=== PATIENT | female | born 1980 | race Caucasian/White ===

== ENCOUNTER 2017-11-03 22:19 | Emergency (ER) | payer SELFPAY ==
[2017-11-04 00:07] LABS: ADD MAN DIFF? NO
[2017-11-04 00:10] LABS: BASO % 1 % (0-3); EOS # 0.1 x10^3/uL (0.0-0.7); EOS % 2 % (0-3); HEMOGLOBIN 12.2 g/dL (12.0-15.5); LYMPH # 2.1 x10^3/uL (1.0-4.8); LYMPH % 34 % (24-48); MEAN CORPUSCULAR HEMOGLOBIN 33 pg (25-35); MEAN CORPUSCULAR HGB CONC 35 g/dL (31-37); MEAN CORPUSCULAR VOLUME 95 fL (79-100); MONO # 0.6 x10^3/uL (0.0-1.1); MONO % 9 % (0-9); NEUT # 3.5 x10^3uL (1.8-7.7); NEUT % 55 % (31-73); PLATELET COUNT 153 x10^3/uL (140-400); RED BLOOD COUNT 3.68 x10^6/uL (3.50-5.40); RED CELL DISTRIBUTION WIDTH 12.8 % (11.5-14.5); WHITE BLOOD COUNT 6.4 x10^3/uL (4.0-11.0)
[2017-11-04 00:20] LABS: INR 1.1 (0.8-1.1); PROTHROMBIN TIME PATIENT 14.1 SEC (11.7-14.0)
[2017-11-04 00:21] LABS: PARTIAL THROMBOPLASTIN TIME 31 SEC (24-38)
[2017-11-04 00:26] LABS: ANION GAP 6 (6-14); BLOOD UREA NITROGEN 15 mg/dL (7-20); CALCIUM 8.6 mg/dL (8.5-10.1); CARBON DIOXIDE 30 mmol/L (21-32); CHLORIDE 108 mmol/L (98-107); CREATININE 0.7 mg/dL (0.6-1.0); GFR 93.2; GLUCOSE 139 mg/dL (70-99); POTASSIUM 3.1 mmol/L (3.5-5.1); SODIUM 144 mmol/L (136-145)
[2017-11-04] MEDS: DIPHTH,PERTUSS(ACELL),TET TOX 0.5 ML DISP.SYRIN. VAX IM (00:29)
[2017-11-04 00:30] LABS: URINE HCG POC HCG NEGATIVE (Negative)
[2017-11-04 00:31] LABS: BILIRUBIN,URINE SMALL (NEG); CLARITY,URINE CLOUDY; COLOR,URINE YELLOW; GLUCOSE,URINE NEGATIVE (NEG); NITRITE,URINE NEGATIVE (NEG); PH,URINE 5.5; PROTEIN,URINE 30 mg/dL (NEG-TRACE)
[2017-11-04 00:42] LABS: BACTERIA,URINE FEW /HPF (0-FEW); RBC,URINE 0 /HPF (0-2); SQUAMOUS EPITHELIAL CELL,UR MOD /LPF; WBC,URINE OCC /HPF (0-4)
[2017-11-04 01:10] LABS: ALBUMIN 3.4 g/dL (3.4-5.0); ALK PHOS 67 U/L (46-116); ALT (SGPT) 16 U/L (14-59); AST (SGOT) 10 U/L (15-37); DIRECT BILIRUBIN 0.1 mg/dL (0.0-0.2); TOTAL BILIRUBIN 0.2 mg/dL (0.2-1.0); TOTAL PROTEIN 6.3 g/dL (6.4-8.2)
[2017-11-04] MEDS: POTASSIUM CHLORIDE 20 MEQ/15 ML ORAL LIQUID. PO (01:45)
== END 2017-11-04 01:54 | disposition home or self-care (01) ==
LOC: ER 11-04 01:54
DX: T63.001A Toxic effect of unspecified snake venom, accidental (unintentional), initial encounter (principal); R42 Dizziness and giddiness; Y92.89 Other specified places as the place of occurrence of the external cause
CPT/HCPCS: 36415; 80048; 80076; 81001; 81025; 85025; 85610; 85730; 90471; 90715; 99284-25

== ENCOUNTER 2017-11-05 15:43 | Emergency (ER) | payer SELFPAY ==
[2017-11-05] MEDS ORDERED: diphenhydrAMINE 50 MG/ML VIAL IVP (16:00)
[2017-11-05] MEDS ORDERED: KETOROLAC 30 MG/ML INJ. IV (16:30)
[2017-11-05] MEDS ORDERED: ACETAMINOPHEN 325 MG TABLET. PO (16:45)
[2017-11-05 16:55] LABS: ADD MAN DIFF? NO
[2017-11-05 16:57] LABS: BASO % 1 % (0-3); EOS % 1 % (0-3); HEMATOCRIT 37.2 % (36.0-47.0); HEMOGLOBIN 12.8 g/dL (12.0-15.5); LYMPH # 1.8 x10^3/uL (1.0-4.8); LYMPH % 29 % (24-48); MEAN CORPUSCULAR HEMOGLOBIN 33 pg (25-35); MEAN CORPUSCULAR HGB CONC 34 g/dL (31-37); MEAN CORPUSCULAR VOLUME 95 fL (79-100); MONO # 0.7 x10^3/uL (0.0-1.1); MONO % 11 % (0-9); NEUT # 3.6 x10^3uL (1.8-7.7); NEUT % 59 % (31-73); PLATELET COUNT 161 x10^3/uL (140-400); RED BLOOD COUNT 3.91 x10^6/uL (3.50-5.40); RED CELL DISTRIBUTION WIDTH 12.6 % (11.5-14.5); WHITE BLOOD COUNT 6.1 x10^3/uL (4.0-11.0)
[2017-11-05 17:14] LABS: ANION GAP 9 (6-14); BLOOD UREA NITROGEN 13 mg/dL (7-20); BUN/CREATININE RATIO 16 (6-20); CALCIUM 8.8 mg/dL (8.5-10.1); CARBON DIOXIDE 30 mmol/L (21-32); CHLORIDE 106 mmol/L (98-107); CREATININE 0.8 mg/dL (0.6-1.0); GFR 79.9; GLUCOSE 89 mg/dL (70-99); POTASSIUM 3.6 mmol/L (3.5-5.1); SODIUM 145 mmol/L (136-145)
[2017-11-05 17:20] LABS: ALBUMIN 3.9 g/dL (3.4-5.0); ALBUMIN/GLOBULIN RATIO 1.3 (1.0-1.7); ALK PHOS 72 U/L (46-116); ALT (SGPT) 18 U/L (14-59); AST (SGOT) 12 U/L (15-37); TOTAL BILIRUBIN 0.4 mg/dL (0.2-1.0); TOTAL PROTEIN 6.9 g/dL (6.4-8.2)
[2017-11-05 17:26] LABS: TROPONINI < 0.017 ng/mL (0.000-0.055)
[2017-11-05 18:30] LABS: NEG OBC SER NEG; POS OBC SER POS; PREG TEST PT QUAL NEGATIVE (NEG)
[2017-11-05 19:24] LABS: INR 1.3 (0.8-1.1); PARTIAL THROMBOPLASTIN TIME 30 SEC (24-38); PROTHROMBIN TIME PATIENT 15.6 SEC (11.7-14.0)
== END 2017-11-05 19:45 | disposition home or self-care (01) ==
LOC: ER 15:43
DX: T63.001D Toxic effect of unspecified snake venom, accidental (unintentional), subsequent encounter (principal); K90.0 Celiac disease; E86.0 Dehydration; Z59.0 Homelessness; Z88.8 Allergy status to other drugs, medicaments and biological substances; Z88.6 Allergy status to analgesic agent; Z91.040 Latex allergy status
CPT/HCPCS: 36415; 70450; 71045; 80053; 84484; 84703; 85025; 85610; 85730; 93005; 99285-25